=== PATIENT | female | born 1980 | race Caucasian/White ===

== ENCOUNTER 2024-07-13 08:08 | Emergency (ER) | payer OTHER, SELFPAY ==
[2024-07-13 08:13] VITALS: BP 115/77; PULSE 80; RESP 16; TEMP 36.6; O2SAT 97; BMI 28.9
--- NOTE | 2024-07-13 08:50 | ED_ITS ---
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 Geovany Springer HPI Narrative: 43-year-old female history of depression, anxiety, panic attacks, GERD who presents emergency department for evaluation of cough. The patient states she has had a chronic cough for 3 years since being diagnosed with COVID. She states that over the last 2 weeks the cough is gotten progressively worse. She states that she was coughing up phlegm which is dark with no blood in it. She was also complaining of bilateral chest and back pain which is worse with coughing worse with breathing. Patient feels short of breath at rest and has dyspnea on exertion. She states that cough makes her nauseous but she does not vomit. Patient states that occasionally she vomits so hard that she becomes incontinent. She has noted urinary frequency but no dysuria. She states the cough became worse over the last 24 hours therefore she came to the emergency department for evaluation. Related Data Previous Rx's ?Medication ?Instructions ?Recorded acetaminophen 500 mg tablet 1,000 mg (2 x 500 mg) PO Q6H PRN 07/13/24 (Tylenol Extra Strength) fever or pain #20 tabs albuterol sulfate 90 mcg/actuation 2 puff inhalation QID 5 days #8.5 07/13/24 aerosol inhaler grams amoxicillin 500 mg capsule 1,000 mg (2 x 500 mg) PO TID 5 07/13/24 days #30 caps azithromycin 250 mg tablet See Rx Instructions PO .COMPLEX #6 07/13/24 (Zithromax Z-Charbel) tabs Allergies Allergy/AdvReac Type Severity Reaction Status Date / Time No Known Allergies Allergy Verified 07/13/24 08:19 Review of Systems Review of Systems: Yes all other systems are reviewed and are negative PMFSH Social History Social History Advance Directives: No Advance Directives Information Provided: No Physical Exam Vital Signs: Vital Signs: Last Vital Signs Temp 98.4 F 07/13/24 09:53 Pulse 68 07/13/24 09:53 Resp 17 07/13/24 09:53 BP 114/68 07/13/24 09:53 Pulse Ox 98 07/13/24 09:53 O2 Del Method Room Air 07/13/24 09:53 BMI result Body Mass Index 28.9 Vital signs were normal. Exam: General: Awake, alert in no distress, patient coughs frequently while I am in the room, cough sounds productive Head: Normocephalic, atraumatic EENT: PERRL, Lids normal, sclera normal, conjunctiva normal, nose normal , ears normal, throat without erythema or exudates Neck: Supple, no adenopathy Lung: Wheezing at the end of forced expiration with cough with the end of forced expiration, rales at the bases, no rhonchi Chest: symmetric movement, nontender Heart: regular rate and rhythm, normal S1, S2 no murmurs or rubs Abdomen: soft, non-tender, nondistended, normal bowel sounds Back: no vertebral tenderness, no CVAT Extremities: no deformities, moves all extremities symmetrically Neuro: Awake, alert, oriented, normal speech, moves all extremities symmetrically Psych: Pleasant, cooperative Medical Decision Making Medical Decision Making MDM Narrative: 43-year-old female history of depression, anxiety, panic attacks, GERD who p resents emergency department for evaluation of productive cough, pleuritic chest pain/back pain, shortness of breath, dyspnea on exertion, urinary frequency incontinence with coughing times 2 weeks with symptoms getting worse over last 24 hours. Vital signs were normal. Physical examination did reveal wheezing at the end of expiration and rales at the bases. Differential diagnosis: ?Includes but is not limited to bacterial pneumonia, atypical pneumonia, viral pneumonia, bronchitis, COVID, influenza, RSV, urinary tract infect The following tests were ordered: COVID-19, influenza, RSV, urinalysis Course: Patient's clinical presentation and physical exam are concerning for bacterial pneumonia versus bronchitis. Patient may also urinary tract infection. Patient will be treated with amoxicillin 1000 mg 3 times a day for 5 days, azithromycin Z-Charbel x5 days, albuterol inhaler 2 puffs 4 times a day for 5 days. She was also advised to take Tylenol and ibuprofen for her pain. She was given printed and verbal instructions and discharged home. Admission/Observation Consideration of admission/observation: Escalation of care including admission/observation considered (Yes) Lab Data Labs: Lab Results 07/13/24 07/13/24 Range/Units 08:29 08:52 Urine Color Yellow Urine Appearance Clear Urine pH 7.0 (5.0-9.0) Ur Specific [place] >= 1.030 H (1.005-1.025) Urine Protein Trace (Neg-Trace) mg/dL Urine Glucose (UA) Negative (Negative) mg/dL Urine Ketones Negative (Negative) mg/dL Urine Blood Negative (Negative) Urine Nitrite Negative (Negative) Ur Leukocyte Esterase Negative (Negative) Influenza Type A (PCR) NEGATIVE (Negative) Influenza Type B (PCR) NEGATIVE (Negative) RSV RNA Qual (PCR) NEGATIVE (Negative) SARS-CoV-2 RNA (RT-PCR) NEGATIVE (Negative) Prescription Management I considered prescription management with: Antibiotic and Other (Albuterol) Discharge Plan Discharge Clinical Impression: Pneumonia Patient Disposition: Home, Self-Care Instructions: Community Acquired Pneumonia (ED) Additional Instructions: Based on your symptoms and your physical examination and I suspect that you have pneumonia versus bronchitis. Take amoxicillin 500 mg pills, 2 pills, every 6 hours (3 times a day) for 5 days. Take Zithromax (azithromycin) Z-Charbel as prescribed. Day 1 take 2 pills, each day after that take 1 pill for total of 5 days. This medication states in your system for 7-10 days and continues to work despite only taking it for 5 days. Use the albuterol inhaler with the spacer, 2 puffs every 4 times a day for 5 days, this will improve your cough Take Tylenol (acetaminophen) 500 mg pills, 2 pills every 6 hours as needed for pain or fever. Follow-up with your doctor in 2 days. Please return to the emergency department if your symptoms get worse or if you develop any symptoms that are concerning to you. Please see the work note Your urinalysis was normal, you do not have a urine infection. Prescriptions: New amoxicillin 500 mg capsule 1,000 mg PO TID 5 Days Qty: 30 0RF albuterol sulfate 90 mcg/actuation HFA aerosol inhaler 2 puff inhalation QID 5 Days Qty: 8.5 0RF azithromycin [Zithromax Z-Charbel] 250 mg tablet See Rx Instructions .ROUTE .COMPLEX Qty: 6 0RF Rx Instructions: take 500 mg today (day 1), then 250 mg for 4 days (days 2-5) acetaminophen [Tylenol Extra Strength] 500 mg tablet 1,000 mg PO Q6H PRN (Reason: fever or pain) Qty: 20 0RF Stand Alone Forms: Work/School Release Print Language: Sierra Leonean
[2024-07-13 09:01] LABS: Appearance Urine Clear; Color Urine Yellow; Glucose Urine UA Negative (Negative); Leukocyte Esterase Urine Negative (Negative); Nitrite Urine Negative (Negative); Specific Gravity - Urine >= 1.030 (1.005-1.025); Urine Blood Negative (Negative); Urine Ketones Negative (Negative); Urine Protein Trace mg/dL (Neg-Trace)
[2024-07-13 09:14] LABS: Influenza A PCR NEGATIVE (Negative); Influenza B PCR NEGATIVE (Negative); Resp Syncy Virus RNA Qual PCR NEGATIVE (Negative); SARS COV2 PCR INHOUSE NEGATIVE (Negative)
[2024-07-13 09:53] VITALS: BP 114/68; PULSE 68; RESP 17; TEMP 36.9; O2SAT 98
[2024-07-13 11:37] VITALS: BP 114/68; PULSE 68; RESP 17; TEMP 36.9; O2SAT 98
== END 2024-07-13 11:37 | disposition home or self-care (01) ==
PROVIDERS: Emergency Provider Emergency Medicine Emergency Medical Services
DX: J18.9 Pneumonia, unspecified organism (principal); Z03.818 Encounter for observation for suspected exposure to other biological agents ruled out; R05.9 Cough, unspecified
CPT/HCPCS: 0241U; 81003; 99283

== ENCOUNTER 2024-10-30 06:51 | Emergency (ER) | payer OTHER, SELFPAY ==
--- NOTE | ~2024-10-30 | XR_ITS ---
EXAMINATION: XR CHEST CLINICAL INFORMATION: cough COMPARISON: None available. TECHNIQUE: Frontal view of the chest was obtained. FINDINGS: No significant abnormality is noted involving the heart, lungs, mediastinum, bony thorax or soft tissues. XR/XR chest 1V IMPRESSION: Normal chest. Electronically signed by: Rusty Olvera MD 10/30/2024 08:16 AM [facility]
[2024-10-30 07:10] VITALS: BP 139/82; PULSE 73; RESP 20; TEMP 36.4; O2SAT 98; BMI 29.8
[2024-10-30 07:59] LABS: Influenza A PCR NEGATIVE (Negative); Influenza B PCR NEGATIVE (Negative); Resp Syncy Virus RNA Qual PCR NEGATIVE (Negative); SARS COV2 PCR INHOUSE NEGATIVE (Negative)
--- NOTE | 2024-10-30 11:14 | ED.URI ---
HPI - URI/Sore Throat General Chief Complaint: Upper Respiratory Symptoms Stated Complaint: coughing Time Seen by Provider: 10/30/24 10:58 Source: patient Mode of arrival: ambulatory Limitations: no limitations History of Present Illness ED Provider: Marc Jacinto DO HPI Narrative: 44-year-old Malian-speaking female with no formal history of asthma who occasionally uses inhalers and history of prediabetes not on medications presents to the emergency department for approximately 1 month of a cough productive of clear sputum. She reports an associated nasal congestion. Patient denies known sick contacts. She denies chest pain, unilateral lower extremity edema, previous history of DVT or PE, difficulty breathing global director air and climate change the course of 1 month, fevers, chills, sore throat or any additional symptoms. Related Data Previous Rx's ?Medication ?Instructions ?Recorded acetaminophen 500 mg tablet 1,000 mg (2 x 500 mg) PO Q6H PRN 07/13/24 (Tylenol Extra Strength) fever or pain #20 tabs albuterol sulfate 90 mcg/actuation 2 puff inhalation QID 5 days #8.5 07/13/24 aerosol inhaler grams amoxicillin 500 mg capsule 1,000 mg (2 x 500 mg) PO TID 5 07/13/24 days #30 caps azithromycin 250 mg tablet See Rx Instructions PO .COMPLEX #6 07/13/24 (Zithromax Z-Charbel) tabs nicotine 7 mg/24 hr daily 1 patch transdermal Q24H #14 ea 10/30/24 transdermal patch prednisone 20 mg tablet 40 mg (2 x 20 mg) PO DAILY 4 days 10/30/24 #8 tabs Allergies Allergy/AdvReac Type Severity Reaction Status Date / Time No Known Allergies Allergy Verified 10/30/24 07:11 Review of Systems Review of Systems: Yes all other systems are reviewed and are negative [facility] Social History Social History Advance Directives: No Advance Directives Information Provided: Yes Do you have a plan to hurt others: No Plan Physical Exam Vital Signs: Vital Signs: Last Vital Signs Temp 97.5 F 10/30/24 07:10 Pulse 73 10/30/24 07:10 Resp 20 10/30/24 07:10 BP 139/82 10/30/24 07:10 Pulse Ox 98 10/30/24 07:10 O2 Del Method Room Air 10/30/24 07:10 BMI result Body Mass Index 29.8 Constitutional: ?Alert, oriented, speaking in full sentences HEENT: ?Normocephalic, atraumatic. ?Moist mucous membranes Eyes: ?PERRL, EOMI Neck: ?Supple, nontender Chest: ?No chest wall tenderness Respiratory: ?Lungs clear to auscultation, no increased work of breathing, occasional cough Cardio: ?Regular rate and rhythm, no murmur, 2+ radial and DP pulses symmetrically GI: ?Soft, nondistended, nontender Back: ?Normal range of motion, nontender Skin: ?No rash, no lesions Neuro: ?Alert and oriented to person, place and time, moves all 4 extremities, no focal deficits Extremities: ?No swelling or tenderness, full range of motion Psych: ?Calm, alert and cooperative, appropriate behavior Medical Decision Making Medical Decision Making MDM Narrative: This is a well-appearing, vitals stable patient presenting with 1 month of a cough. Working diagnosis is bronchitis. The patient does not have expiratory wheezing and does not in an asthma or COPD exacerbation. No suspicion for ACS. The patient has no chest pain. She has no signs of fluid overload. Her chest x-ray per my independent interpretation shows no acute cardiopulmonary abnormalities. Formal read is unremarkable. Negative for COVID-19, influenza or RSV. Likely another viral etiology. The patient does not require antibiotics. We will trial a short course of prednisone to help with inflammation and prescribed nicotine patch due to the patient's wishes to stop smoking. Encouraged acetaminophen at home. Return precautions provided. All discussion with the patient was had with the assistance of in-person official court interpreter, Debra. Lab Data Labs: Lab Results 10/30/24 Range/Units 07:17 Influenza Type A (PCR) NEGATIVE (Negative) Influenza Type B (PCR) NEGATIVE (Negative) RSV RNA Qual (PCR) NEGATIVE (Negative) SARS-CoV-2 RNA (RT-PCR) NEGATIVE (Negative) Discharge Plan Discharge Clinical Impression: Upper respiratory infection Patient Disposition: Home, Self-Care Instructions: Upper Respiratory Infection (ED), Acute Bronchitis (ED) Additional Instructions: La radiograf?a de t?rax no muestra signos de neumon?a. No tiene COVID, gripe ni VSR. Es probable que se trate de santana bronquitis por otro virus. Le hemos recetado un tratamiento de prednisona y le hemos dado santana dosis aqu?. Empiece la siguiente dosis ma?taylor por la ma?taylor. Contin?e bebiendo t? y miel, as? alla 1000 mg de paracetamol (Tylenol) seg?n sea necesario para la pr?xima semana cada 8 horas Por favor, vuelva con cualquier signo de fiebre de m?s de 100 grados F, el empeoramiento de la dificultad para respirar o cualquier otra preocupaci?n aguda Traducci?n realizada con la versi?n gratuita del traductor [email or web address] Prescriptions: New prednisone 20 mg tablet 40 mg PO DAILY 4 Days Qty: 8 0RF nicotine 7 mg/24 hr patch 24 hour 1 patch transdermal Q24H Qty: 14 0RF No Action amoxicillin 500 mg capsule 1,000 mg PO TID 5 Days Qty: 30 0RF albuterol sulfate 90 mcg/actuation HFA aerosol inhaler 2 puff inhalation QID 5 Days Qty: 8.5 0RF azithromycin [Zithromax Z-Charbel] 250 mg tablet See Rx Instructions .ROUTE .COMPLEX Qty: 6 0RF Rx Instructions: take 500 mg today (day 1), then 250 mg for 4 days (days 2-5) acetaminophen [Tylenol Extra Strength] 500 mg tablet 1,000 mg PO Q6H PRN (Reason: fever or pain) Qty: 20 0RF Stand Alone Forms: Work/School Release Print Language: Malian
[2024-10-30] MEDS: predniSONE 20 MG TABLET 40 MG PO (11:26)
[2024-10-30 11:32] VITALS: BP 139/82; PULSE 73; RESP 20; TEMP 36.4; O2SAT 98
== END 2024-10-30 11:33 | disposition home or self-care (01) ==
PROVIDERS: Emergency Provider Emergency Medicine
DX: J06.9 Acute upper respiratory infection, unspecified (principal); R05.9 Cough, unspecified; Z03.818 Encounter for observation for suspected exposure to other biological agents ruled out
CPT/HCPCS: 0241U; 71045; 99282; 99283

== ENCOUNTER → 2024-10-30 07:12 | Outpatient (BNV) | payer OTHER, SELFPAY | PROVIDERS: Visit Provider Radiology Diagnostic Radiology | DX: R05.9 Cough, unspecified (principal) | CPT/HCPCS: 71045 ==